=== PATIENT | male | born 1975 | race Caucasian/White ===

== ENCOUNTER 2021-10-19 21:54 | Emergency (ER) | payer BC ==
[~2021-10-19] VITALS: Ht 180.3 cm; Wt 108.9 kg
[2021-10-19] MEDS ORDERED: FAMOTIDINE 20 MG/2 ML VIAL IV STA (22:28)
[2021-10-19] MEDS ORDERED: ASPIRIN 325 MG TAB PO ONE (22:30)
[2021-10-19] MEDS ORDERED: FAMOTIDINE 20 MG/2 ML VIAL IV ONE (22:50)
[2021-10-19] MEDS ORDERED: ASPIRIN 325 MG TAB ONE (22:50)
[2021-10-19 23:44] VITALS: BP 122/73
== END 2021-10-19 23:44 | disposition home or self-care (01) ==
LOC: FSED 22:03
DX: R07.9 Chest pain, unspecified (principal); K21.9 Gastro-esophageal reflux disease without esophagitis; F41.9 Anxiety disorder, unspecified; E78.5 Hyperlipidemia, unspecified; Z88.1 Allergy status to other antibiotic agents
CPT/HCPCS: 71046; 80053; 82553; 84484; 85025; 93005; 96374; 99284